=== PATIENT | male | born 1960 | race Caucasian/White ===

== ENCOUNTER 2017-01-01 16:20 | Inpatient (IN) | payer BC ==
[~2017-01-01] VITALS: Ht 180.3 cm; Wt 96.4 kg
--- NOTE | ~2017-01-01 | CON ---
PATIENT'S NAME: MARIANA TEMPLE [facility] AGE: 56 Y [address] ROOM: [place] [address] LOCATION: GPCU ADMIT DATE: 01/01/2017 Consultation DISCHARGE DATE: FAMILY PHYSICIAN: Sofía Griffin MD ATTENDING PHYSICIAN: Edison Cabrera CHIEF COMPLAINT: Right shoulder pain. REASON FOR CONSULTATION: Fever. HISTORY OF PRESENT ILLNESS: This is a 56-year-old male who suffered a right shoulder injury many years ago after a fall and has been bothering him that shoulder with pain. The patient recently had rotator cuff repair on 12/21/2016 by the orthopedic surgeon. After the surgery, the patient has been getting physical therapy. I precise that usual postsurgical right shoulder pain is controlled pretty good with the pain medication that he takes at home. However yesterday when he was in the physical therapy, he said the right shoulder is more tender than his usual pain and when he went home, he also felt diaphoretic and hot and then felt chills and was shivering. He did not take a temperature at home last night. The patient was admitted for evaluation of these chills and concerned for the cause of the fever and chills. REVIEW OF SYSTEMS: As mentioned in the history of present illness. All other system were reviewed and were negative except those mentioned in the history of present illness. PAST MEDICAL HISTORY: None. ALLERGIES: NONE. HOME MEDICATIONS: 1. Tapentadol 75 mg p.o. every 4-6 hours p.r.n. for pain. 2. Ibuprofen 200 mg p.o. every 4 hours p.r.n. for pain. 3. Valium 5 mg p.o. q.6 hours p.r.n. for pain. 4. Aspirin 81 mg p.o. daily. PAST SURGICAL HISTORY: Status post right rotator cuff repair on 12/21/2016. FAMILY HISTORY: PATIENT'S NAME: MARIANA TEMPLE [facility] AGE: 56 Y [address] ROOM: [place] [address] LOCATION: GPCU ADMIT DATE: 01/01/2017 Consultation DISCHARGE DATE: FAMILY PHYSICIAN: Sofía Griffin MD ATTENDING PHYSICIAN: Edison Cabrera Both parents had coronary artery disease and required open heart surgery in the 70s. SOCIAL HISTORY: The patient was a former cigarette smoker. He quit about in his 30s and he used to smoke about 1 pack per day for 12 years. He is a social alcohol drinker on average 5 days a week about 2 cans of beer every time he drinks. He denies any alcohol withdrawal in the past. PHYSICAL EXAMINATION: VITAL SIGNS: At the time of my evaluation, temperature 101.4, heart rate 90, respiration 16, blood pressure 131/84, saturation 95% on room air. GENERAL APPEARANCE: Alert and oriented x3. Currently, in no acute distress. The patient looks diaphoretic. HEENT: Pupils equally round and reactive to light. Extraocular muscles intact. Anicteric sclerae. Nasal turbinates are normal bilaterally. Moist oral mucosa. NECK: No JVD. CARDIOVASCULAR: Regular rate and rhythm. Normal S1, S2. No murmur. No rubs. No gallops. RESPIRATORY: Clear to auscultation. No rales. No rhonchi. No crackles. No wheezing. ABDOMEN: Obese, soft, nontender, nondistended, normal bowel sounds. No mass. EXTREMITIES: No edema in upper or lower extremities. Right shoulder seems slightly a little bit swollen. Range of motion of the right shoulder is preserved, but with some mild pain during active and passive range of motion test. No obvious erythema on the skin. The patient is having fever therefore his skin is warm to touch. NEUROLOGICAL: Sensation intact. Muscle strength is weak on the grasp of the right hand about 3/5, otherwise unremarkable. SKIN: No ulcer. No rash. No cyanosis. LABORATORY DATA: White blood cell 3.6, hemoglobin 13.4, hematocrit 39.2, platelet 185. ESR 31. Urinalysis from yesterday showed negative UTI. CRP 7.86. Procalcitonin 0.94. Blood culture 2 sets were obtained from yesterday and the results are pending. Gram stain of the right superficial postsurgical wound showed no organisms. No white blood cells observed. IMAGING STUDIES: Chest x-ray yesterday showed no vascular congestion, normal. ASSESSMENT AND PLAN: 1. Regarding his fever. Currently, I do not find any other obvious source PATIENT'S NAME: MARIANA TEMPLE [facility] AGE: 56 Y [address] ROOM: [id number] [place], [place] [address] LOCATION: [facility] ADMIT DATE: 01/01/2017 Consultation DISCHARGE DATE: FAMILY PHYSICIAN: Sofía Griffin MD ATTENDING PHYSICIAN: Edison Cabrera such as pulmonary or urinary or skin. Perhaps the fever comes from the right shoulder joint infection which could be a possibility, but it is interesting to see that the ESR and CRP are going down. For now, I will keep him n.p.o., and no antibiotics and I have already spoken to Dr. Cabrera and he will be seeing the patient in the morning and will decide to take the patient to the operating room to do open drainage and bone biopsy and do washout or not depending on his evaluation in the morning. In the meantime, we will follow up on the blood cultures that are still pending. Further plan will depend on clinical course. 2. He is a full code. 3. DVT prophylaxis. Compression devices in anticipation for operating room for open drainage and exploration of the right shoulder. Time spent in care on the day of consultation 25 minutes where 10 minutes was spent on chart review and the remainder of the time was spent on interview and physical examination and counseling. The counseling includes addressing all the questions and the concerns that the patient had, and also going over the plan of care in detail with the patient. This time also includes calling Dr. Cabrera regarding the plan of care. Further plan will depend on clinical course. WILFRIDO VELAZQUEZ MD CC/jesse /[id number] d: 01/02/17699 t: 01/15/172026, CONSULTATION REPORT
--- NOTE | ~2017-01-01 | DS ---
PATIENT'S NAME: MARIANA TEMPLE [facility] AGE: 56 Y [address] ROOM: [address] [place], [place] [address] LOCATION: GPCU ADMIT DATE: 01/02/2017 Discharge Summary DISCHARGE DATE: 01/05/2017 FAMILY PHYSICIAN: Sofía Griffin MD ATTENDING PHYSICIAN: Edison Cabrera ADMISSION DIAGNOSIS: Shoulder pain and elevated body temperature of 100.4 in the emergency room. DISCHARGE DIAGNOSIS: Right shoulder pain status post right shoulder irrigation and debridement and drain placement that was on 01/02/2017. No growth of culture as of today on 01/05/2017. PROCEDURE PERFORMED: Right shoulder arthroscopy, irrigation with debridement, and drain placement x2 by Dr. Cabrera. CONSULT: Hospitalist. HISTORY: The patient had a surgery done by Dr. Cabrera on 12/21/2016 for right shoulder arthroscopy, rotator cuff repair, biceps tenodesis, distal clavicle excision, acromioplasty, and labral debridement. The patient had a postoperative appointment with Dr. Cabrera on 12/31/2016 without any issues. On the same day later in the day 12/31/2016, the patient had been noticing chills and distaste of his mouth with food. The patient had shivering overnight and chills and then came to the emergency room for those issues. In the emergency room, the patient had elevated CRP, sed rates, and a procalcitonin. Dr. Cabrera admitted the patient to the hospital for observation without any antibiotic treatment. In the next morning on December, the patient's fever went up to 102 overnight with chills and increasing shoulder pain. Overnight, all the lab values have improved. Due to the fever and increasing pain, we performed a right shoulder arthroscopy, irrigation and debridement with drain placement x2. The patient improved daily since then. Through the stay, there is no growth on 4 blood cultures, wound swab from the ER, as well as synovial aspirate at the time of I and D. There was no growth to date according to microbiology lab. COURSE: At the time of the hospital right after the I and D, the patient started on IV Ancef as well as IV vancomycin. Lab was drawn daily. The patient's temperature was 98.1, blood pressure 131/78, pulse 79, respiratory rate is 20 on room air. Today's CRP is 0.98, creatinine is 0.8. White count is 6.7. Sed rate is 29. DISPOSITION: We will discharge the patient to home. MEDICATIONS: PATIENT'S NAME: MARIANA TEMPLE [facility] AGE: 56 Y [address] ROOM: [place] [address] LOCATION: GPCU ADMIT DATE: 01/02/2017 Discharge Summary DISCHARGE DATE: 01/05/2017 FAMILY PHYSICIAN: Sofía Griffin MD ATTENDING PHYSICIAN: Edison Cabrera 1. We want to start him on Levaquin 750 mg one p.o. daily start before discharge today. 2. We will place him on Percocet 5/325 one to two p.o. q.4 to 6 hours p.r.n. 3. Valium 5 mg one p.o. q.6 to 8 hours muscle spasm. INSTRUCTIONS: The patient is to use sling for comfort. He may come out of the sling if his right upper extremity gets stiff. The patient may perform pendulum circles on his arm, right elbow range of motion and wrist as well as hand range of motion to prevent swelling. The patient is not to use this right upper extremity for anything except for range of motion exercises. The patient is to keep the dressings on until the office visit in 5 days on 01/10/2017 at [facility] [place] with Dr. Cabrera. The patient is to keep the dressings on . The patient is to do a diet as tolerated. We will order labs to [facility] and he is to draw that before he comes on Tuesday with us. If the patient's symptoms worsens before the next visit, the patient is to contact [facility] [place] immediately. I informed the patient that Dr. Austin May in on-call for group this weekend, and if the patient has any issues, the patient is to contact us immediately to [phone]. TREVER GARCIA FOR MD DEVI LOTT/jesse /[id number] d: 01/06/17 0328 t: 02/02/17 1356, DISCHARGE SUMMARY
--- NOTE | ~2017-01-01 | ER ---
PATIENT'S NAME: MARIANA TEMPLE [facility] AGE: 56 Y [address] ROOM: [place] [address] LOCATION: GPCU ADMIT DATE: 01/01/2017 ER/Outpatient Report DISCHARGE DATE: FAMILY PHYSICIAN: Sofía Griffin MD ATTENDING PHYSICIAN: Edison Cabrera TIME SEEN: 1700 hours. CHIEF COMPLAINT: Fever, chills. HISTORY OF PRESENT ILLNESS: The patient is a 56-year-old male who said on December 21 he had a rotator cuff repaired by Dr. Cabrera. The patient states that he was seen by Dr. Cabrera who upgraded his physical therapy. He says after therapy he started having some mild increase in pain in the right shoulder, but the big concern was fever, low-grade fevers, some chills, and sweats. The patient denied any headache, sore throat, cough, or urinary symptoms. He has had some constipation associated with his pain medication. ALLERGIES: NONE. CURRENT MEDICATIONS: Include: 1. Nucynta. 2. Ibuprofen. 3. Valium. 4. Aspirin. MEDICAL HISTORY: He has no history of any chronic diseases. SURGERIES: None. SOCIAL HISTORY: Nonsmoker. Has occasional beer. REVIEW OF SYSTEMS: GENERAL: Some malaise, fever, chills. HEAD/EENT: Denies headache. Denies any nasal discharge or sore throat. RESPIRATORY: No shortness of breath or cough. GASTROINTESTINAL: He has had some constipation. No abdominal pain. No PATIENT'S NAME: MARIANA CAIN [facility] AGE: 56 Y [address] ROOM: [place] [address] LOCATION: GPCU ADMIT DATE: 01/01/2017 ER/Outpatient Report DISCHARGE DATE: FAMILY PHYSICIAN: Sofía Griffin MD ATTENDING PHYSICIAN: Edison Cabrera vomiting. GENITOURINARY: No flank pain. No dysuria. MUSCULOSKELETAL: Includes the recent rotator cuff repair and his right arm has been in an immobilizer. PHYSICAL EXAMINATION: VITAL SIGNS: On exam, blood pressure was 120/81, his temperature is a 100.4, his respirations were 20, pulse 111, and his O2 sats were 95%. GENERAL APPEARANCE: Alert, healthy-appearing white male. HEAD: Normocephalic. EYES: PERRLA. No icterus. NOSE: Airway is patent. MOUTH: Oral membranes moist. There is no erythema. NECK: Supple. No adenopathy. LUNGS: Sound clear peripherally. HEART: Rhythm appeared regular. No murmur. ABDOMEN: Soft, nontender. SKIN: Warm and dry. No open sores. EXTREMITIES: Right shoulder arm was in an immobilizer. Steri-Strips were still in place. There was no significant swelling, redness, and slightly tender to palpation. LABORATORY DATA: Lactate was 1.5. CBC: White count of 5000, hemoglobin 13, ANC was 3.6. Urine is yellow, clear. Micro was unremarkable. CRP elevated at 8.21, procalcitonin was 0.95, his ESR was 48. Chest x-ray, heart-size appeared normal, he did not appear to have any consolidation or signs of pneumonia. Blood cultures x2 drawn. ASSESSMENT: 1. Fever, chills. 2. Recent right shoulder rotator cuff repair, possible septic right shoulder. PLAN: I did talk to Dr. Cabrrea. He recommended that the patient be admitted for observation and no antibiotics at this time. The patient was seen here by Dr. Cabrera's PA. I wrote the initial admit orders. TREVER JERRY FOR MD CASS KAUFMAN/jesse PATIENT'S NAME: MARIANA TEMPLE [facility] AGE: 56 Y [address] ROOM: [address] [place] [address] LOCATION: [facility] ADMIT DATE: 01/01/2017 ER/Outpatient Report DISCHARGE DATE: FAMILY PHYSICIAN: Sofía Griffin MD ATTENDING PHYSICIAN: Edison Cabrera /[id number] d: 01/02/17211 t: 01/11/17911, OUTPATIENT REPORT
--- NOTE | ~2017-01-01 | OR ---
PATIENT'S NAME: WU APONTE [facility] AGE: 56 Y [address] ROOM: [place] [address] LOCATION: GPCU ADMIT DATE: 01/02/2017 OR/Procedure Report DISCHARGE DATE: 01/05/2017 FAMILY PHYSICIAN: Sofía Griffin MD ATTENDING PHYSICIAN: Ramses Cabrera SURGEON: Ramses Cabrera MD ASSET PROTECTION SPECIALIST: TREVER Hutson DATE OF PROCEDURE: 01/02/2017 PREOPERATIVE DIAGNOSIS: Right shoulder infection. POSTOPERATIVE DIAGNOSIS: Right shoulder infection. PROCEDURE PERFORMED: Right shoulder arthroscopy with irrigation and debridement and drain placement (anterior and posterior). ANESTHESIA: General endotracheal. ANESTHESIOLOGIST: Lana Charlton CRNA DRAINS: Drains x2. COMPLICATIONS: None. DESCRIPTION OF PROCEDURE: Wu Aponte was taken to the operating room and placed in the beachchair position where his shoulder was prepped and draped in the usual sterile fashion. Incisions were made through his prior incisions, and this was used to introduce the arthroscope, and anterior portal was also created, and a lateral portal was also created through which the introduction of a shaver and a cannula was passed. Approximately 16 L of fluid was passed through the shoulder, irrigating both in the glenohumeral joint as well as on the underside of the rotator cuff, and also on the bursal surface of the rotator cuff. All areas were evaluated and irrigated copiously. The shaver was used to debride any synovitic-looking tissue or other irregularities. Once this had been copiously irrigated, drains were passed; one anteriorly out of the bursal subacromial space, and the other posteriorly out of the glenohumeral space. These drains were passed through suction, and the wounds were closed sterilely and dressed sterilely, and the patient was returned to the recovery room with no other issues or concerns. RAMSES CABRERA MD PATIENT'S NAME: WU APONTE [facility] AGE: 56 Y [address] ROOM: [place] [address] LOCATION: GPCU ADMIT DATE: 01/02/2017 OR/Procedure Report DISCHARGE DATE: 01/05/2017 FAMILY PHYSICIAN: Sofía Griffin MD ATTENDING PHYSICIAN: Ramses Cabrera/jesse /[id number] d: 01/11/17 1225 t: 02/02/17 1401, OPERATIVE SUMMARY
--- NOTE | ~2017-01-01 | HP ---
PATIENT'S NAME: MARIANA TEMPLE [facility] AGE: 56 Y [address] ROOM: [id number] [place], [place] [address] LOCATION: GPCU ADMIT DATE: 01/01/2017 History & Physical DISCHARGE DATE: FAMILY PHYSICIAN: Sofía Griffin MD ATTENDING PHYSICIAN: Edison Cabrera DATE OF SERVICE: HISTORY OF PRESENT ILLNESS: A 56-year-old comes to the emergency room complaining of chills. He has had a rotator cuff surgery done by Dr. Cabrera on 12/21/2016 at [facility]. He had a postop appointment with Dr. Cabrera yesterday 12/31/2016. He was doing very well. He went to physical therapy after Dr. Cabrera's first appointment and started noticing some chills at that time. He had supper, the fast food burger, on 01/01/2017. He said it tasted bad, at that time was not able to finish. He also had breakfast today and lunch today, an [employer] sandwich, which also did not taste very good either. He denies any nausea or vomiting or diarrhea. He says he only had 3 bowel movements since the time of surgery. So, he thinks he is more constipated than having loose stool at this time. The patient denies any active drainage. The patient denies any increase in pain compared to yesterday or day before. He has been taking Nucynta, valium, as well as 200 mg ibuprofen every 6 hours for the last few days. The patient denies any arm focal pain or paresthesia to bilateral upper extremity or lower extremities. PAST MEDICAL HISTORY: The patient does not have a significant past medical history. FAMILY HISTORY: The patient has a family history of heart disease. His fraternal brother had a bypass surgery as well as his cousins also had bypass surgeries as well. SOCIAL HISTORY: He works at [email or web address]. The patient admits occasional use of beer. Tobacco use: The patient denies tobacco use. The patient denies any use of illicit drugs. The patient is a high school graduate. ALLERGIES: NO KNOWN DRUG ALLERGIES. MEDICATIONS: 1. Nucynta 75 mg one p.o. q.6 hours p.r.n. pain. 2. Valium 5 mg one p.o. q.6 to 8 hours p.r.n. pain. 3. Ibuprofen q.6 hours 200 mg one p.o. p.r.n. pain. PATIENT'S NAME: MARIANA TEMPLE [facility] AGE: 56 Y [address] ROOM: [address] [place], [place] [address] LOCATION: GPCU ADMIT DATE: 01/01/2017 History & Physical DISCHARGE DATE: FAMILY PHYSICIAN: Sofía Griffin MD ATTENDING PHYSICIAN: Edison Cabrera REVIEW OF SYSTEMS: HEENT: The patient denies any change of visions or headache or memory issues. The patient denies any runny nose, cough, or hearing issues. The patient denies any smelling issues. The patient does complain of food not tasting very well since supper of 12/31/2016. The patient denies any chest pain, shortness of breath, or cough. GI: The patient denies any nausea, vomiting, diarrhea, or hematochezia. The patient complaints of constipation. The patient has had only 3 bowel movements since 12/21/2016. The patient denies any issue with urination. The patient denies any hematuria or increase in frequency of urination. MUSCULOSKELETAL: The patient does complain of right shoulder pain. However, there is no increase in shoulder pain since last , 2 days ago. The patient denies any elbow, hand or wrist pain. NEUROLOGIC: The patient denies any numbness or tingling sensation into bilateral upper or lower extremities. VASCULATURE: The patient denies any edema in the hands, bilateral upper or lower extremities. LABORATORY DATA: CBC: White count is 5.0, hemoglobin is 13.0, platelets 256. ESR is 48. Procalcitonin is 0.95. CRP is 8.21. Urinalysis is clear. Microscopic analysis is rare white blood cell, rare red blood cell, negative for epithelial cells, and few bacteria. Lactate is 1.5 which is within normal limit. Chest x-ray was negative. PHYSICAL EXAMINATION: VITAL SIGNS: Weight 95 kg, blood pressure 120/81, pulse 111 regular, respirations 20 room air, temperature is 100.4 tympanic membrane repeat was 100.2. O2 sat is 95 on room air. Pain level is 3/10. The worst is at 7/10 in the shoulder. GENERAL: The patient is alert and oriented x3, appears to be in no acute distress. The patient is cooperative throughout the entire physical examination. HEENT: Head: Atraumatic, normocephalic. Eyes: PERRLA. Ears: Clear external auditory meatus with clear tympanic membrane. No bulging or edema noted. Nares clear bilaterally. Mouth: Buccal mucosa moist and pink. Uvula in the center. NECK: Trachea in midline. CHEST: The patient has a regular rate and rhythm. No murmur noted. LUNGS: Auscultation of the lung reveals clear lung renee in all long renee. No audible wheeze or cough noted. ABDOMEN: Normal bowel sounds. Soft, nontender to all 4 quadrants. There is no tenderness at McBurney's point. VASCULATURE: There is no edema noted on bilateral upper extremities as well as bilateral lower extremities. RIGHT SHOULDER EXAM: The patient is able to perform pendulum circles without PATIENT'S NAME: MARIANA TEMPLE [facility] AGE: 56 Y [address] ROOM: [address] [address] [facility] ADMIT DATE: 01/01/2017 History & Physical DISCHARGE DATE: FAMILY PHYSICIAN: Sofía Griffin MD ATTENDING PHYSICIAN: Edison Cabrera any pain. The patient's incision site anterior arthroscopic portal shows a collection of blood. There is no fluctuance or active drainage noted. I did remove the scab to perform the culture. There is no exudate noted as I push around the incision site. I have left the rest of the portals for the rotator cuff anchor. Healing very well. The rest of them, the biceps anchor, subacromial and the posterior portal still have steri-strips intact. There is no erythema. Abnormal warmth is noted at the site of the shoulder. The patient is neurovascularly intact distally. There is no motor sensitive deficit noted on the right upper arm. NEUROLOGIC: There is no paresthesia compared to contralateral left upper extremity to manual, light and dull touch. ASSESSMENT: 1. Status post right shoulder rotator cuff repair. The patient had [place] 6.5 anchor x2. 2. Biceps tenodesis, Bio-Tenodesis Screw 9 mm peak anchor. 3. Distal clavicle excision. 4. Acromioplasty. 5. Right shoulder pain and elevated body temperature at 100.4. PLAN: We discussed the physical examination finding, laboratory finding, his x-ray findings, and the patient's history with the patient and his in detail. The patient is 11 days status post right shoulder arthroscopy with rotator cuff repair, biceps tenodesis. CRP is elevated at 8.21 and which is concerning for hospital infection of the right shoulder. Swabs obtained today in the ER. However, since there was no active drainage or fluctuance under the incision site, we will not place him on antibiotic at this time. We will admit the patient for observation. We will repeat CBC, CRP, and ESR tomorrow morning. We will tentatively schedule him for right shoulder arthroscopy possible arthrotomy, irrigation and debridement of the shoulder, possible removal of hardware, possible drain placement tomorrow morning. We will keep him n.p.o. after midnight today. If the lab looks a lot better, we will cancel this surgery. We will continue his pain control with Nucynta 75 mg one p.o. q.4 to 6 hours p.r.n. pain and also he may use Valium 5 mg one p.o. q.6 to 8 hours p.r.n. muscle spasm. After midnight, we will use IV medications and muscle relaxant since he will be n.p.o. We will monitor his vitals every hour. If patient's temperature goes over 102, the nurse will contact myself or Dr. Cabrera directly. The patient may continue to use the sling for comfort. The patient may perform pendulum circles and elbow, wrist, and hand range of motion as needed. PATIENT'S NAME: MARIANA TEMPLE [facility] AGE: 56 Y [address] ROOM: [id number] [place], [place] [address] [facility] AD[facility] DATE: 01/01/2017 History & Physical DISCHARGE DATE: FAMILY PHYSICIAN: Sofía Griffin MD ATTENDING PHYSICIAN: Edison Cabrera PA FOR MD DEVI LOTT/jesse /[id number] D: [id number] T: [id number] HISTORY & PHYSICAL
[2017-01-01 17:39] LABS: BASOPHIL % 0.2 %; EOSINOPHIL # 0.3 K/uL (0.0-0.5); EOSINOPHIL % 5.4 %; HEMATOCRIT 37.8 % (37.0-53.0); IMMATURE GRANULOCYTE % 0.8 %; LYMPHOCYTE # 0.6 K/uL (0.8-4.0); LYMPHOCYTE % 11.5 %; MCHC 34.4 gm/dL (32.0-36.5); MONOCYTE # 0.4 K/uL (0.0-1.0); MONOCYTE % 8.9 %; MPV 9.7 fl (9.4-12.4); NEUTROPHIL # (ANC) 3.6 K/uL (1.4-9.0); NEUTROPHIL % 73.2 %; NRBC % 0 /100WBC (0-0.00); PLATELET COUNT 256 K/uL (150-450); RDW-CV 12.5 % (11.9-14.6)
[2017-01-01 17:41] LABS: BILIRUBIN URINE NEGATIVE (NEGATIVE); BLOOD URINE NEGATIVE /UL (NEGATIVE); COLOR URINE YELLOW (YELLOW); GLUCOSE URINE NEGATIVE (NEGATIVE); KETONE URINE NEGATIVE (NEGATIVE); LEUKOCYTES URINE NEGATIVE /UL (NEGATIVE); NITRITE URINE NEGATIVE (NEGATIVE); PROTEIN URINE 15 mg/dL (NEGATIVE); TURBIDITY URINE CLEAR (CLEAR); UROBILINOGEN URINE NORMAL (NORMAL)
[2017-01-01 17:48] LABS: BACTERIA URINE FEW (NEGATIVE); EPITHELIAL URINE NEGATIVE #/HPF (NEGATIVE); RBC URINE RARE #/HPF (NEGATIVE); WBC URINE RARE #/HPF (NEGATIVE)
[2017-01-01] MEDS ORDERED: ADVIL200 MG PO (21:31)
[2017-01-01] MEDS ORDERED: NUCYNTA75 MG PO (21:31)
[2017-01-01] MEDS ORDERED: VALIUM5 MG PO (21:32)
[2017-01-01] MEDS ORDERED: ASPIRIN LO-DOSE81 MG PO (21:33)
[2017-01-02 03:40] LABS: HEMATOCRIT 39.2 % (37.0-53.0); HEMOGLOBIN 13.4 g/dL (12.0-17.0); MCH 30.6 pg (27.0-34.0); MCHC 34.2 gm/dL (32.0-36.5); MCV 89.5 fl (83.0-98.0); MPV 10.1 fl (9.4-12.4); RBC 4.38 M/uL (4.00-6.00); RDW-CV 12.4 % (11.9-14.6); WBC 3.6 K/uL (4.0-11.0)
[2017-01-02 04:04] LABS: PLATELET COUNT 185 K/uL (150-450)
[2017-01-02 06:27] LABS: ABSOLUTE NEUTROPHIL CT (ANC) 2.4 K/uL (1.4-9.0); BANDED NEUTROPHIL # 0.9 K/uL (0.0-0.1); BANDED NEUTROPHILS % 24 %; LYMPHOCYTE # 0.5 K/uL (0.8-4.0); LYMPHOCYTE % 14 %; MONOCYTE # 0.4 K/uL (0.0-1.0); SEGMENTED NEUTROPHIL # 1.6 K/uL (1.4-9.0); SEGMENTED NEUTROPHIL % 43 %
[2017-01-02 12:21] LABS: CALCIUM 7.6 mg/dL (8.5-10.5); TOTAL BILIRUBIN 0.5 mg/dL (0.0-1.5); TOTAL PROTEIN 6.4 g/dL (6.0-8.4)
[2017-01-03 06:23] LABS: HEMATOCRIT 35.1 % (37.0-53.0); MCH 30.6 pg (27.0-34.0); MCHC 34.2 gm/dL (32.0-36.5); MCV 89.5 fl (83.0-98.0); MPV 10.3 fl (9.4-12.4); PLATELET COUNT 166 K/uL (150-450); RBC 3.92 M/uL (4.00-6.00); RDW-CV 12.3 % (11.9-14.6); WBC 5.7 K/uL (4.0-11.0)
[2017-01-03 06:45] LABS: ANION GAP 10.8 (10.0-19.0); BLOOD UREA NITROGEN 13 mg/dL (6-24); CALCIUM 7.8 mg/dL (8.5-10.5); CHLORIDE 110 mMol/L (96-110); CO2 24 mMol/L (22-32); CREATININE 0.8 mg/dL (0.6-1.3); POTASSIUM 3.8 mMol/L (3.7-5.1); SODIUM 141 mMol/L (135-145)
[2017-01-03 06:58] LABS: LYMPHOCYTE # 1.4 K/uL (0.8-4.0); LYMPHOCYTE % 25 %; MONOCYTE # 0.5 K/uL (0.0-1.0); SEGMENTED NEUTROPHIL # 2.5 K/uL (1.4-9.0); SEGMENTED NEUTROPHIL % 43 %
[2017-01-03 06:59] LABS: ABSOLUTE NEUTROPHIL CT (ANC) 3.8 K/uL (1.4-9.0); BANDED NEUTROPHIL # 1.3 K/uL (0.0-0.1); BANDED NEUTROPHILS % 23 %
[2017-01-04 05:16] LABS: BASOPHIL % 0.4 %; EOSINOPHIL # 0.3 K/uL (0.0-0.5); EOSINOPHIL % 5.3 %; HEMATOCRIT 35.2 % (37.0-53.0); HEMOGLOBIN 11.9 g/dL (12.0-17.0); IMMATURE GRANULOCYTE % 0.5 %; LYMPHOCYTE # 2.1 K/uL (0.8-4.0); LYMPHOCYTE % 37.1 %; MCH 30.5 pg (27.0-34.0); MCHC 33.8 gm/dL (32.0-36.5); MCV 90.3 fl (83.0-98.0); MONOCYTE # 0.6 K/uL (0.0-1.0); MONOCYTE % 9.9 %; MPV 10.4 fl (9.4-12.4); NEUTROPHIL # (ANC) 2.6 K/uL (1.4-9.0); NEUTROPHIL % 46.8 %; NRBC % 0 /100WBC (0-0.00); PLATELET COUNT 177 K/uL (150-450); RDW-CV 12.6 % (11.9-14.6); WBC 5.6 K/uL (4.0-11.0)
[2017-01-05 04:44] LABS: BASOPHIL % 0.3 %; EOSINOPHIL # 0.2 K/uL (0.0-0.5); EOSINOPHIL % 2.9 %; HEMATOCRIT 37.8 % (37.0-53.0); HEMOGLOBIN 12.6 g/dL (12.0-17.0); IMMATURE GRANULOCYTE % 0.6 %; LYMPHOCYTE % 14.3 %; MCH 29.6 pg (27.0-34.0); MCHC 33.3 gm/dL (32.0-36.5); MCV 88.9 fl (83.0-98.0); MONOCYTE # 0.5 K/uL (0.0-1.0); MONOCYTE % 7.5 %; NEUTROPHIL % 74.4 %; NRBC % 0 /100WBC (0-0.00); RBC 4.25 M/uL (4.00-6.00); RDW-CV 12.3 % (11.9-14.6); WBC 6.7 K/uL (4.0-11.0)
[2017-01-05 04:45] LABS: PLATELET COUNT 221 K/uL (150-450)
[2017-01-05 06:38] LABS: CREATININE 0.8 mg/dL (0.6-1.3)
[2017-01-05] MEDS ORDERED: PERCOCET 5-3251 EACH PO (08:26)
[2017-01-05] MEDS ORDERED: LEVAQUIN 750 M750 MG PO (08:27)
[2017-01-06] MEDS ORDERED: CLINDAMYCIN HC300 MG PO (15:07)
[2017-01-06] MEDS ORDERED: TUMS REGULAR ST1 TAB PO (15:26)
== END 2017-01-05 15:45 | disposition disaster alternative care site (69) | DRG 550 ==
LOC: GMED 16:20 → GPCU 20:18
PROVIDERS: Family Medicine; Internal Medicine; ADMIT Orthopaedic Surgery Sports Medicine
PROC: 0R9 Upper Joints, Drainage (ICD-10-PCS; principal; 2017-01-02)
DX: M00.9 Pyogenic arthritis, unspecified (principal); M75.21 Bicipital tendinitis, right shoulder; R50.9 Fever, unspecified
CPT/HCPCS: J0690; J1170; J1650; J2270; J3010; J3360; J3370; J3480; J7040; J7050

== ENCOUNTER → 2017-01-07 | Day surgery (SDC) | payer BC ==
[~2017-01-07] MED LIST: ADVIL200 MG PO; ASPIRIN LO-DOSE81 MG PO; CLINDAMYCIN HC300 MG PO; LEVAQUIN 750 M750 MG PO; NUCYNTA75 MG PO; PERCOCET 5-3251 EACH PO; TUMS REGULAR ST1 TAB PO; VALIUM5 MG PO
== END | disposition disaster alternative care site (69) ==
LOC: GPOC 01-06 17:00 → GSDC 08:49 → GPOC 17:00
PROC: 02HV33Z Insertion of Infusion Device into Superior Vena Cava, Percutaneous Approach (ICD-10-PCS; principal; 2017-01-07)
DX: Z45.2 Encounter for adjustment and management of vascular access device (principal); M25.511 Pain in right shoulder; Z98.890 Other specified postprocedural states
CPT/HCPCS: C1751; J0690